=== PATIENT | female | born 1950 | race Two or more races ===

== ENCOUNTER → 2017-10-23 | Outpatient (CLI) | payer MEDICARE ==
[~2017-10-23] MED LIST: AMOX500 PO; ASPI81CH PO; HYDACE5 PO; MECL25 PO; MULTIVITAMINS PO; NAPR500 PO; PRED20 PO; TRIAMCINOLONE
== END | disposition home or self-care (01) ==
LOC: LAB SHORT 15:53 → OLS 15:53
PROVIDERS: Nurse Practitioner Women's Health
DX: Z12.72 Encounter for screening for malignant neoplasm of vagina (principal); Z91.89 Other specified personal risk factors, not elsewhere classified
CPT/HCPCS: 87624; G0123

== ENCOUNTER 2018-02-25 09:15 | Day surgery (SDC) | payer MEDICARE ==
[~2018-02-25 09:15] MED LIST changes: +BETA.05TO TOP; +DIVIGEL1 EAC1 VAG; +Hair, Skin & N1 EACH PO; +IBUP400 PO; +NAPR220 PO
== END 2018-02-25 22:40 | disposition home or self-care (01) ==
LOC: MOI MAM 09:15
DX: R92.1 Mammographic calcification found on diagnostic imaging of breast (principal); D36.9 Benign neoplasm, unspecified site
CPT/HCPCS: 19281

== ENCOUNTER → 2018-11-08 | Outpatient (CLI) | payer MEDICARE ==
[2018-11-11 15:07] LABS: HPV 16 Negative (Negative); HPV 18 Negative (Negative); HPV OTHER HR TYPES Negative (Negative)
== END | disposition home or self-care (01) ==
LOC: LAB SHORT 13:12 → LAB 13:12
PROVIDERS: Nurse Practitioner Women's Health
DX: Z12.72 Encounter for screening for malignant neoplasm of vagina (principal); Z91.89 Other specified personal risk factors, not elsewhere classified
CPT/HCPCS: 87624; G0123

== ENCOUNTER 2022-09-19 08:23 | Day surgery (SDC) | payer MEDICARE ==
[~2022-09-19] VITALS: Ht 157.5 cm; Wt 75.1 kg
[2022-09-19] VITALS (14 sets, daily range): BP systolic 133–173; BP diastolic 79–98
[~2022-09-19 08:23] MED LIST changes: +Estrace Vagin42.5 GM; +Pepcid20 MG PO; +Prednisone20 MG PO
[2022-09-19] MEDS ORDERED: ASPI325 PO (11:04)
--- NOTE | 2022-09-19 16:50 | NUR ---
REPORT RECEIVED FROM LAUREN TAYLOR. VSS. PT ON 2L SUPPLEMENTAL O2 VIA NC. PT ABLE TO REPOSITION SELF IN BED. PT REQUESTING PO FLUIDS AND TOLERATING THEM WELL. PT DENIES PAIN OR DISCOMFORT AT THIS TIME. PT DRESSING C/D/I WITHOUT DRAINAGE, SWELLING, OR REDNESS. AT BEDSIDE.
--- NOTE | 2022-09-19 17:39 | NUR ---
Patient up to Ambulate independently. Gait steady. Discharge instructions reviewed with patient. Patient verbalizes understanding. Copy given to patient to take home. Dressing to procedure site clean, dry, intact with no visible drainage, swelling, erythema or bruising noted. Patient States Post-Procedure ride home has been arranged. Discharged via wheelchair to private car for ride home. PT BELONGINGS RETURNED TO PT.
== END 2022-09-19 22:54 | disposition home or self-care (01) ==
LOC: ORSCMMR 08:23 → NM 08:23 → ORSCMMR 09:10 → NM 22:54
PROVIDERS: Surgery
PROC: 07B60ZX Excision of Left Axillary Lymphatic, Open Approach, Diagnostic (ICD-10-PCS; principal; 2022-09-19 12:30)
PROC: 0HBU0ZZ Excision of Left Breast, Open Approach (ICD-10-PCS; principal; 2022-09-19 12:30)
DX: C50.812 Malignant neoplasm of overlapping sites of left female breast (principal); Z17.0 Estrogen receptor positive status [ER+]; C77.3 Secondary and unspecified malignant neoplasm of axilla and upper limb lymph nodes; I10 Essential (primary) hypertension; K21.9 Gastro-esophageal reflux disease without esophagitis; E03.9 Hypothyroidism, unspecified; Z87.891 Personal history of nicotine dependence; E78.5 Hyperlipidemia, unspecified; F41.8 Other specified anxiety disorders; Z79.82 Long term (current) use of aspirin
CPT/HCPCS: 38792; 76098; 88307; 88360; A9270; A9520; J0690; J1100; J1885; J2250; J2405; J2704; J2765; J2795; J3010; J7120; Q9968

== ENCOUNTER 2022-10-17 08:44 | Day surgery (SDC) | payer MEDICARE ==
[~2022-10-17] VITALS: Ht 157.5 cm; Wt 74.8 kg
[2022-10-17] VITALS (13 sets, daily range): BP systolic 94–143; BP diastolic 61–88
[~2022-10-17 08:44] MED LIST changes: +ASPI325 PO
[2022-10-17] MEDS ORDERED: CEPH500 PO (09:20)
--- NOTE | 2022-10-17 09:49 | NUR ---
PATIENT INSTRUCTED TO CLEAN LEFT BREAST WITH CHLORHEXIDINE WIPE UPON ARRIVAL. WHEN PATIENT DONE WIPING BREAST, NOTED RED DRAINAGE FROM INCISION SITE TO LEFT BREAST.
[2022-10-17] MEDS ORDERED: ACET500 PO (10:44)
--- NOTE | 2022-10-17 11:46 | NUR ---
10/17/22 1146 ROSALIE CORDERO PER VERBAL FROM DR BROWN, ROPIVACAINE 0.5% 30ML THAT WAS PULLED FOR THE OPERATION WAS NOT USED.
--- NOTE | 2022-10-17 13:29 | NUR ---
Patient up to Ambulate independently. Gait steady. Discharge instructions reviewed with patient. Patient verbalizes understanding. Copy given to patient to take home. Discharged via wheelchair to private car for ride home.
== END 2022-10-17 22:55 | disposition home or self-care (01) ==
LOC: ORD 08:44 → ORSCMMR 08:44 → ORD 22:55
PROVIDERS: Surgery
PROC: 0H9U0ZZ Drainage of Left Breast, Open Approach (ICD-10-PCS; principal; 2022-10-17 10:45)
DX: L76.32 Postprocedural hematoma of skin and subcutaneous tissue following other procedure (principal); I10 Essential (primary) hypertension; Z87.891 Personal history of nicotine dependence; F41.8 Other specified anxiety disorders; Z79.82 Long term (current) use of aspirin
CPT/HCPCS: A9270; J0690; J1100; J2250; J2405; J2704; J2795; J3010; J7120

== ENCOUNTER 2023-06-14 10:32 | Day surgery (SDC) | payer MEDICARE ==
[2023-06-14] VITALS (11 sets, daily range): BP systolic 125–164; BP diastolic 66–96
[~2023-06-14] VITALS: Ht 157.4 cm; Wt 71.8 kg
[~2023-06-14 10:32] MED LIST changes: +ACET500 PO; +CEPH500 PO
--- NOTE | 2023-06-14 11:33 | NUR ---
History, Chart, Medications and Allergies reviewed before start of procedure. Lungs clear T/O to Auscultation. Patient confirms NPO status and agrees with scheduled surgery. Pre-Op teaching done. Pt verbalizes understanding. Patient reports completing Chlorhexadine shower X2 prior to admission to hospital.
--- NOTE | 2023-06-14 14:47 | NUR ---
Discharge instructions reviewed with patient. Patient verbalizes understanding. Copy given to patient to take home. Discharged via wheelchair to private car for ride home.
== END 2023-06-14 14:30 | disposition home or self-care (01) ==
LOC: ORSCMMR 10:32
PROVIDERS: Surgery
PROC: 0HBU0ZX Excision of Left Breast, Open Approach, Diagnostic (ICD-10-PCS; principal; 2023-06-14 11:45)
DX: C50.412 Malignant neoplasm of upper-outer quadrant of left female breast (principal); I10 Essential (primary) hypertension; E03.9 Hypothyroidism, unspecified; K21.9 Gastro-esophageal reflux disease without esophagitis
CPT/HCPCS: 88305; A9270; J0690; J1100; J2250; J2371; J2405; J2704; J3010; J7120

== ENCOUNTER 2024-10-13 14:24 | Emergency (ER) | payer MEDICARE ==
[~2024-10-13] VITALS: Ht 157.5 cm; Wt 56.7 kg
[2024-10-13] MEDS ORDERED: Ipratropium/Albuterol SulF 2.5-0.5MG/3 ML Amp INH ONE (14:45)
[2024-10-13 14:58] LABS: BASOPHILS ABSOLUTE AUTO 0.02 K/mm3 (0.00-0.23); BASOPHILS PERCENT AUTO 0 % (0-2); EOSINOPHILS ABSOLUTE AUTO 0.03 K/mm3 (0.00-0.68); EOSINOPHILS PERCENT AUTO 1 % (0-6); Hematocrit 39.5 % (33.0-51.0); Hemoglobin 13.7 g/dL (11.5-16.0); IMMATURE GRAN ABSOLUTE AUTO 0.01 K/mm3 (0.00-0.10); IMMATURE GRAN PERCENT AUTO 0 % (0-1); LYMPHOCYTES PERCENT AUTO 15 % (21-46); MONOCYTES PERCENT AUTO 8 % (4-13); Mean Corpuscular HGB 30.2 pg (26.0-34.0); Mean Corpuscular HGB Conc 34.7 g/dL (31.5-36.5); Mean Corpuscular Volume 87 fL (80-100); Mean Platelet Volume 9.7 fL (9.1-12.4); NEUTROPHILS ABSOLUTE AUTO 5.07 K/mm3 (1.96-9.15); NEUTROPHILS PERCENT AUTO 76 % (41-73); Platelet Count 325 K/mm3 (150-400); RDW Coefficient Variation 11.6 % (11.7-14.2); RDW Standard Deviation 37.2 fL (35.1-46.3); Red Blood Cell Count 4.53 M/mm3 (3.80-5.20); White Blood Cell Count 6.63 K/mm3 (4.00-11.30)
[2024-10-13 15:27] LABS: Albumin, Blood 3.3 g/dL (3.4-5.0); Albumin/Globulin Ratio 0.6 (0.8-1.8); Bilirubin, Total 0.6 mg/dL (0.1-1.0); Bun/Creatinine Ratio 14.2 (12.0-20.0); Calcium, Blood 9.9 mg/dL (8.5-10.1); Creatinine, Blood 0.7 mg/dL (0.40-1.00); Globulin, Blood 5.2 g/dL (2.2-4.0); Potassium, Blood 4.2 mmol/L (3.5-5.5); Total Protein, Blood 8.5 g/dL (6.4-8.2)
[2024-10-13 16:01] LABS: CORONAVIRUS COVID-19 AG Negative (NEGATIVE); INFLUENZA A AG Negative (NEGATIVE); INFLUENZA B AG Negative (NEGATIVE)
[2024-10-13] MEDS ORDERED: PredniSONE 20 MG Tab PO ONE (17:25)
[2024-10-13] MEDS ORDERED: Albuterol 2.5 MG/3 ML VIAL INH SCH (17:25)
[2024-10-13 17:30] VITALS: BP 138/75
[2024-10-13] MEDS ORDERED: ALBU2.5V5 INH (18:21)
[2024-10-13] MEDS ORDERED: DELTASONE20 MG PO (18:21)
== END 2024-10-13 18:28 | disposition home or self-care (01) ==
LOC: ER 14:24
PROVIDERS: Emergency Medicine
DX: J98.01 Acute bronchospasm (principal); Z91.041 Radiographic dye allergy status; Z91.030 Bee allergy status; Z86.73 Personal history of transient ischemic attack (TIA), and cerebral infarction without residual deficits; Z87.891 Personal history of nicotine dependence; Z11.52 Encounter for screening for COVID-19
CPT/HCPCS: 71046; 80053; 83880; 85025; 87428-QW; 93005; 93010; 94640; 94644; 94664; 99285-25; J7512

== ENCOUNTER 2025-03-23 21:38 | Emergency (ER) | payer MEDICARE ==
[~2025-03-23] VITALS: Ht 154.9 cm; Wt 47.2 kg
[~2025-03-23 21:38] MED LIST changes: +ALBU2.5V5 INH; +DELTASONE20 MG PO
[2025-03-23 22:08] LABS: BASOPHILS ABSOLUTE AUTO 0.03 K/mm3 (0.00-0.23); BASOPHILS PERCENT AUTO 1 % (0-2); EOSINOPHILS ABSOLUTE AUTO 0.09 K/mm3 (0.00-0.68); EOSINOPHILS PERCENT AUTO 2 % (0-6); Hematocrit 36.4 % (33.0-51.0); Hemoglobin 12.4 g/dL (11.5-16.0); IMMATURE GRAN ABSOLUTE AUTO 0.01 K/mm3 (0.00-0.10); IMMATURE GRAN PERCENT AUTO 0 % (0-1); LYMPHOCYTES ABSOLUTE AUTO 1.09 K/mm3 (0.84-5.20); LYMPHOCYTES PERCENT AUTO 22 % (21-46); MONOCYTES ABSOLUTE AUTO 0.33 K/mm3 (0.16-1.47); MONOCYTES PERCENT AUTO 7 % (4-13); Mean Corpuscular HGB Conc 34.1 g/dL (31.5-36.5); Mean Corpuscular Volume 90 fL (80-100); NEUTROPHILS ABSOLUTE AUTO 3.46 K/mm3 (1.96-9.15); NEUTROPHILS PERCENT AUTO 69 % (41-73); NRBC ABSOLUTE 0.00 K/mm3 (0.00-0.02); NRBC Auto 0.0 /100 WBC (0.0-0.2); Platelet Count 290 K/mm3 (150-400); RDW Coefficient Variation 12.4 % (11.7-14.2); RDW Standard Deviation 40.7 fL (35.1-46.3)
[2025-03-23 22:25] LABS: Alanine Aminotransfer (ALT/SGP 24.0 U/L (12-78); Albumin, Blood 3.6 g/dL (3.4-5.0); Albumin/Globulin Ratio 0.7 (0.8-1.8); Anion Gap 7.0 mmol/L (3-11); Aspartate Aminotrans (AST/SGOT 9.0 U/L (12-37); Bilirubin, Total 0.4 mg/dL (0.1-1.0); Blood Urea Nitrogen 16.0 mg/dL (8-24); CO2, Blood 30.0 mmol/L (21-32); Calcium, Blood 9.9 mg/dL (8.5-10.1); Chloride, Blood 101.0 mmol/L (98-108); Creatinine, Blood 0.7 mg/dL (0.40-1.00); Globulin, Blood 5.0 g/dL (2.2-4.0); Glucose, Blood 113.0 mg/dL (70-99); Potassium, Blood 3.6 mmol/L (3.5-5.5); Sodium, Blood 134.0 mmol/L (136-145); Total Protein, Blood 8.6 g/dL (6.4-8.2)
[2025-03-24 00:36] VITALS: BP 146/84
== END 2025-03-24 00:36 | disposition home or self-care (01) ==
LOC: ER 21:38
PROVIDERS: Emergency Medicine
DX: R63.0 Anorexia (principal); Z91.014 Allergy to mammalian meats; Z91.041 Radiographic dye allergy status; Z79.899 Other long term (current) drug therapy; Z87.891 Personal history of nicotine dependence; Z86.73 Personal history of transient ischemic attack (TIA), and cerebral infarction without residual deficits
CPT/HCPCS: 80053; 85025; 99284